=== PATIENT | male | born 1990 | race Asian ===

== ENCOUNTER 2021-01-13 09:45 | Emergency (ER) | payer OTHER ==
[~2021-01-13] VITALS: Ht 170.2 cm; Wt 63.5 kg
[2021-01-13 11:59] LABS: PLATELET COUNT 166 K/uL (142-355)
[2021-01-13 13:02] LABS: POTASSIUM 3.8 mmol/L (3.6-5.2)
[2021-01-14 07:13] VITALS: BP 114/68; TEMP 98
== END 2021-01-14 17:00 | disposition other institution (70) ==
LOC: ED 09:45
PROVIDERS: Family Medicine
DX: R44.0 Auditory hallucinations (principal); Z11.52 Encounter for screening for COVID-19
CPT/HCPCS: 80053; 80307; 80320; 80329; 81000; 85027; 87635; 93005; 99285; U0003